=== PATIENT | female | born 1935 | race Caucasian/White ===

== ENCOUNTER 2017-01-27 19:34 | Inpatient (IN) | payer MEDICARE, OTHER ==
[~2017-01-27] VITALS: Ht 160 cm; Wt 58.1 kg
[2017-01-27 20:29] VITALS: BP 157/71; PULSE 70; TEMP 98.7
[2017-01-27] MEDS ORDERED: SINEMET 25/101 UDTAB (20:50)
[2017-01-27] MEDS ORDERED: ARTANE 2MG2 MG (20:50)
[2017-01-27 23:25] LABS: INR 1.1 (0.8-3.0)
[2017-01-28] VITALS (10 sets, daily range): BP systolic 118–168; BP diastolic 47–71; PULSE 50–79; TEMP 98–98.4
[2017-01-28 07:06] LABS: BASO % 0.4 % (0.0-2.0); EOS # 0.1 (0.0-0.7); EOS % 1.2 % (0-4.0); GRAN # 3.5 (1.4-6.5); GRAN % 67.5 % (42.2-75.2); LYMPH # 1.1 (1.2-3.4); LYMPH % 21.5 % (20.0-51.0); MEAN CELL VOLUME 99 fl (80.0-100.0); MEAN CORPUSCULAR HGB CONC 33 g/dl (33.0-37.0); MEAN PLATELET VOLUME 11.1 fl (7.4-10.4); MONO # 0.5 (0.1-0.6); PLATELET COUNT 166 K/mm3 (130-400); RED BLOOD COUNT 3.11 M/mm3 (4.10-5.30); REDCELL DISTRIBUTION WIDTH-CV 14.7 % (11.5-14.5); WHITE BLOOD COUNT 5.1 K/mm3 (4.8-10.8)
[2017-01-28 07:08] LABS: HEMATOCRIT 30.9 % (37.0-47.0); HEMOGLOBIN 10.3 g/dl (12.5-16.0); MEAN CORPUSCULAR HEMOGLOBIN 33 pg (27.0-31.0)
[2017-01-28 07:10] LABS: ADJUSTED CALCIUM 8.8 mg/dL (8.4-10.2); ALBUMIN 3.5 gm/dL (3.5-5.0); BILIRUBIN,TOTAL 0.9 mg/dL (0.0-1.0); CALCIUM 8.4 mg/dL (8.4-10.2); CREATININE, serum 0.65 mg/dL (0.52-1.25); TOTAL PROTEIN 5.9 gm/dL (6.4-8.2)
[2017-01-29 02:26] VITALS: BP 162/72; PULSE 86; TEMP 98.4
[2017-01-29 06:04] VITALS: BP 140/61; PULSE 92; TEMP 99.2
[2017-01-29 07:28] LABS: HEMATOCRIT 28.6 % (37.0-47.0); HEMOGLOBIN 9.6 g/dl (12.5-16.0)
[2017-01-29 07:38] LABS: CALCIUM 8.3 mg/dL (8.4-10.2); CREATININE, serum 0.58 mg/dL (0.52-1.25); POTASSIUM 3.6 mmol/L (3.4-5.0)
[2017-01-29 10:00] VITALS: BP 139/58; PULSE 86; TEMP 98.3
[2017-01-29 13:46] VITALS: BP 119/43; PULSE 81; TEMP 97.7
[2017-01-29 17:36] VITALS: BP 144/58; PULSE 71; TEMP 98.5
[2017-01-29 21:55] VITALS: BP 129/52; PULSE 76; TEMP 97.3
[2017-01-30 02:04] VITALS: BP 121/53; PULSE 72; TEMP 97.6
[2017-01-30 05:49] VITALS: BP 134/70; PULSE 81; TEMP 97.5
[2017-01-30 08:03] LABS: HEMATOCRIT 29.9 % (37.0-47.0); HEMOGLOBIN 10.1 g/dl (12.5-16.0)
[2017-01-30] MEDS ORDERED: ASPI325T6 PO (08:13)
[2017-01-30] MEDS ORDERED: TYLENOL 325MG325 MG PO (08:14)
[2017-01-30] MEDS ORDERED: OYSCO 500500 M1 PO (08:15)
[2017-01-30] MEDS ORDERED: DULCOLAX S10 MG/SUPP RC (08:16)
[2017-01-30] MEDS ORDERED: SENOKOT S 50 MG1 TAB PO (08:16)
[2017-01-30] MEDS ORDERED: MULTI VITAMINS1 TAB PO (08:16)
[2017-01-30] MEDS ORDERED: VITAMINC500CH PO (08:16)
[2017-01-30 09:43] VITALS: BP 134/70; PULSE 81; TEMP 97.5
== END 2017-01-30 11:05 | disposition swing bed (61) | DRG 482 ==
LOC: SURG 19:34
PROVIDERS: Nurse Practitioner Family; Orthopaedic Surgery
PROC: 0QS606Z Reposition Right Upper Femur with Intramedullary Internal Fixation Device, Open Approach (ICD-10-PCS; principal; 2017-01-28 12:00)
DX: S72.144A Nondisplaced intertrochanteric fracture of right femur, initial encounter for closed fracture (principal); Z66 Do not resuscitate; W18.30XA Fall on same level, unspecified, initial encounter; G20 Parkinson's disease
CPT/HCPCS: 99222-AI; 99232-AI; 99239; A9284; C1713; J0690; J2270; J2704; J3010